=== PATIENT | female | born 1990 ===

== ENCOUNTER 2024-11-19 09:30 | Outpatient (CLI) | payer OTHER ==
[~2024-11-19 09:30] MED LIST: PAXIL20 MG PO; PERCOCET 10-3251 TAB PO
== END 2024-11-19 09:41 | disposition home or self-care (01) ==
LOC: SONOGRAMA 09:30
PROVIDERS: ATTEND Obstetrics & Gynecology
DX: R10.2 Pelvic and perineal pain (principal); N84.0 Polyp of corpus uteri